=== PATIENT | female | born 1955 | race Caucasian/White ===

== ENCOUNTER 2017-03-31 16:20 | Emergency (ER) | payer OTHER ==
[~2017-03-31] VITALS: Ht 157.5 cm; Wt 86.5 kg
[2017-03-31 16:23] VITALS: Ht 157.5 cm; Wt 86.5 kg
[2017-03-31] MEDS ORDERED: KETOROLAC 30 MG INJ IM STA (16:42)
--- NOTE | 2017-03-31 16:48 | ERD ---
ER Documentation Chief Complaint Date/Time DATE: 03/31/17 TIME: 16:43 Chief Complaint Complains of back pain x 4 days HPI This is a 61-year-old female who presents to the emergency department today complaining of left-sided upper back pain and neck pain and left arm pain for the past 2 weeks. States that she went to her doctor today but "nothing was done". States that she has just been taking Advil for pain. Denies any fevers or chills. ROS All systems reviewed and are negative except as per history of present illness. Medications Home Meds Active Scripts Cyclobenzaprine Hcl* (Cyclobenzaprine Hcl*) 10 Mg Tablet, 10 MG PO QHS, #7 TAB Prov:XOCHITL TITUS PA-C 03/31/17 Naproxen* (Naprosyn*) 500 Mg Tablet, 500 MG PO BID Y for PAIN AND/OR INFLAMMATION, #30 TAB Prov:XOCHITL TITUS PA-C 03/31/17 Tramadol HCl (Tramadol HCl) 50 Mg Tablet, 50 MG PO Q4 Y for PAIN, #20 TAB Prov:XOCHITL TITUSC 03/31/17 Allergies Allergies: Coded Allergies: Penicillins (Verified Allergy, Intermediate, 03/31/17) sulfacetamide (Verified Allergy, Intermediate, 03/31/17) Physical Exam Vitals Vital Signs Date Time Temp Pulse Resp B/P Pulse Ox O2 Delivery O2 Flow Rate FiO2 03/31/17 21:28 98.0 72 18 144/82 99 Room Air 03/31/17 16:23 98.3 72 18 142/97 98 Physical Exam Const: No acute distress Head: Atraumatic Eyes: Normal Conjunctiva ENT: Normal External Ears, Nose and Mouth. Neck: Full range of motion..~ No meningismus. Pain with turning neck to the right. Left-sided paraspinal tenderness. Pulses 2+. Distal neurovascularly intact Resp: Clear to auscultation bilaterally Cardio: Regular rate and rhythm, no murmurs Abd: Soft, non tender, non distended. Normal bowel sounds Skin: No petechiae or rashes Back: No midline or flank tenderness. Scapular and lower trapezius tenderness to palpation Ext: No cyanosis, or edema. Left arm with full active range of motion. Pulses 2+. Distal neurovascularly intact. Neur: Awake and alert Psych: Normal Mood and Affect Results 24 hrs Current Medications Medications (Trade) Dose Ordered Sig/James Route PRN Reason Start Time Stop Time Status Last Admin Dose Admin Ketorolac Tromethamine (Toradol) 30 mg ONCE STAT IM 03/31/17 16:42 03/31/17 16:43 DC 03/31/17 16:59 Procedures/MDM This is a 61-year-old female who presents the emergency department today complaining of left-sided upper back pain and neck pain for the past 2 weeks. Patient did go to her primary care doctor today but "nothing was done for her". She was requesting x-rays. Patient did have some radicular pain I did agree to do x-rays of the patient's neck. Per the radiology report images of the cervical spine show no acute fracture or subluxation. The intervertebral discs demonstrate mild disc space narrowing at C6 and 7 there is spondylosis and degenerative changes present at the cervical spine from C3 through C7. Likely the source of the patient's pain. Low suspicion for acute fracture or dislocation. Patient is afebrile and otherwise well-appearing. They have no loss of bowel or bladder control. Low suspicion for cauda equina or abscess. Patient was given Toradol here in the emergency department and pain improved. Patient will be given a prescription for tramadol, Naprosyn and Flexeril for home At this time the patient is stable for discharge and outpatient management. Patient should follow up with their PCP in the next 1-2 days for possible referral to orthopedics. They may return to the emergency department sooner for any persistent or worsening of symptoms. Patient understood and agreed with the plan. Departure Diagnosis: Primary Impression: Neck pain Condition: XOCHITL Carballo PA-C Mar 31, 2017 16:48
--- NOTE | 2017-03-31 21:10 | RADRPT ---
PROCEDURE: Cervical spine series CLINICAL INDICATION: Pain for 2 weeks with radiculopathy TECHNIQUE: AP, lateral, odontoid views are obtained COMPARISON: None available FINDINGS: The odontoid view is normal. The prevertebral soft tissues and epiglottis are normal. Preservation of vertebral body heights are noted. No acute fractures or traumatic subluxations are present. The intervertebral discs demonstrate mild disk space narrowing at the C6-7 level . Spondylosis/degenera tive enthesopathy is present of the cervical spine from the C3 through C7 levels. The lung apices a nd imaged ribs and medial clavicles are clear. For evaluation of radiculopathy consider bilateral o blique views or MRI to further evaluate. IMPRESSION: 1. No acute fractures or traumatic subluxations. 2. Degenerative spondylosis/enthesopathy at C3-C7 levels. 3. For further evaluation of radiculopathy recommend bilateral oblique views and MRI to further jose j ozate. RPTAT: HDC .bAril Villalobos MD, Date Time Electronically viewed and signed by .Abril Villalobos MD, on 03/31/2017 21:09 .C/
[2017-03-31] MEDS ORDERED: TRAM50TA2 PO (21:15)
[2017-03-31] MEDS ORDERED: NAPR-260 PO (21:15)
[2017-03-31] MEDS ORDERED: CYCL-319 PO (21:16)
[2017-03-31 21:28] VITALS: BP 144/82; PULSE 72; RESP 18; TEMP 98
== END 2017-03-31 21:29 | disposition home or self-care (01) ==
LOC: FTE 16:20
DX: M54.2 Cervicalgia (principal)
CPT/HCPCS: 72040; 96372; J1885; Z7502

== ENCOUNTER 2017-06-20 07:58 | Day surgery (SDC) | payer OTHER ==
[~2017-06-20] VITALS: Ht 157.5 cm; Wt 86.1 kg
[~2017-06-20 07:58] MED LIST: CYCL-319 PO; NAPR-260 PO; TRAM50TA2 PO
[2017-06-20] MEDS ORDERED: PROPOFOL 20 ML ONE (08:36)
[2017-06-20] MEDS ORDERED: FENTAnyl 50 MCG/ML VIAL ONE (08:36)
[2017-06-20 08:37] VITALS: Ht 157.5 cm; Wt 86.1 kg
[2017-06-20] MEDS ORDERED: LEVO100T87 PO (08:49)
[2017-06-20] MEDS ORDERED: TYL650R PR (08:49)
[2017-06-20] MEDS ORDERED: SIMV5TAB50 PO (08:49)
--- NOTE | 2017-06-20 09:36 | OPPN ---
Date/Time of Note Date/Time of Note DATE: 06/20/17 TIME: 09:35 Operative Report Preoperative Diagnosis Rectal bleeding Postoperative Diagnosis Internal and external hemorrhoids Occasional diverticulosis of the colon Operation/Procedure Performed Colonoscopy Surgeon see signature line inventory assistant None Anesthesia: MAC Estimated blood loss: none Transfusion Required none Specimen None Grafts/Implants none Complications none KISHA ROOT MD Jun 20, 2017 09:36
--- NOTE | 2017-06-20 10:27 | GILP ---
DATE OF PROCEDURE: NAME OF PROCEDURE: Colonoscopy. SURGEON: Kisha Linda MD PREOPERATIVE DIAGNOSES: Rectal bleeding. POSTOPERATIVE DIAGNOSES 1. Colonoscopy all the way to the cecum. 2. Internal and external hemorrhoids. 3. Occasional diverticulosis of the colon. INDICATION FOR THE PROCEDURE: Ms. Holly Bhatt is a 62-year-old female patient who was compl aining of rectal bleeding. The procedure and possible complications are well explained to the patient, she understood and conse nted to the procedure. DESCRIPTION OF PROCEDURE: Under the influence of anesthesia, the colonoscope was carefully introduc ed in the rectum and under direct vision, it was advanced all the way to the cecum. FINDINGS: The patient had internal and external hemorrhoids. She also had occasional diverticulosi s of the colon. No colon neoplasm was identified. She tolerated the procedure very well and there was no complication from the procedure. At the end of the procedure, she was awake with stable vital signs and she was discharged home to the care of h er family. IMPRESSION: Please see postoperative diagnoses. PLAN: 1. Anusol-HC 2.5% cream b.i.d. 2. Next screening colonoscopy in 10 years. Dictated By: KISHA KAUFMAN/DEL Conf#: [id number] DID#: [id number]
== END 2017-06-20 11:39 | disposition home or self-care (01) ==
LOC: GIL 07:58
PROVIDERS: ATTEND Internal Medicine Gastroenterology
DX: K62.5 Hemorrhage of anus and rectum (principal); K64.8 Other hemorrhoids; K64.4 Residual hemorrhoidal skin tags; K57.30 Diverticulosis of large intestine without perforation or abscess without bleeding; M19.90 Unspecified osteoarthritis, unspecified site; E78.5 Hyperlipidemia, unspecified; E03.9 Hypothyroidism, unspecified; E66.01 Morbid (severe) obesity due to excess calories; Z68.34 Body mass index [BMI] 34.0-34.9, adult; Z88.0 Allergy status to penicillin; Z88.2 Allergy status to sulfonamides
CPT/HCPCS: 45378; J3010; Z7610